=== PATIENT | male | born 1965 | race Caucasian/White ===

== ENCOUNTER 2025-01-30 12:56 | Outpatient (REF) | payer BC, SELFPAY ==
--- NOTE | 2025-01-30 | EMG_ITS ---
please see the attached neurophysiology report MTDD
--- OUTSIDE RECORDS SUMMARY | 2025-01-30 13:22 | XMS_ITS | Clinical Summary ---
Author Organization [address] [place] [address] Address [address] [place] [address] Phone Care Team Providers Care Assembler Camper Name Role Phone Marlene Kelly MD Primary Care Provider [phone] Allergies No known active allergies Medications cholecalciferol (VITAMIN D-3) 50 mcg (2,000 unit) tablet Take 1 tablet (2,000 Units total) by mouth 1 (one) time each day. 11/14/2023 Active turmeric, bulk, 100 % powder by Does not apply route. 11/12/2020 Active B cmplx 4/vit D3/C/folic/zinc (VITAL-D RX ORAL) Take by mouth. 11/12/2020 Active zinc gluconate 10 mg lozenge Take by mouth. 11/12/2020 Active meloxicam (MOBIC) 7.5 mg tablet Take 1 tablet (7.5 mg total) by mouth 1 (one) time each day. 90 each 1 11/13/2024 Active Active Problems Problem Noted Date Diagnosed Date Vitamin B12 deficiency 11/14/2023 Vitamin D deficiency 11/14/2023 Dyslipidemia 11/09/2022 Encounters Date Type Department Care Team Description 01/21/2025 3:45 PM EDT Office Visit Orthopedic Surgery [address] [address] Mounika Esteban PA Bilateral carpal tunnel syndrome (Primary Dx); Trigger middle finger of right hand 12/10/2024 9:00 AM EDT Consult Orthopedic [address] [address] Mounika Esteban PA Bilateral carpal tunnel syndrome (Primary Dx); Arthralgia of both hands; Trigger middle finger of right hand 11/13/2024 9:00 AM EDT Office Visit Internal Medicine - [place] [address] [facility] [address] [place] [phone] Marlene Kelly MD Adult general medical examination (Primary Dx); Vitamin B12 deficiency; Vitamin D deficiency; Dyslipidemia; Other fatigue; Chronic midline low back pain without sciatica; Screening for malignant neoplasm of prostate; Polyarthralgia; Arthralgia of both hands from Last 3 Months Surgical History Surgery Date Site/Laterality Comments INCISIONAL HERNIA REPAIR 1996 Bilateral PROCEDURE: IN IMPLANT MESH OPN HERNIA RPR/DEBRIDEMENT CLOSURE Family History Medical History Relation Name Comments Hypertension Father Ovarian cancer Maternal Grandmother No Known Problems Mother Other: ovarian cyst Sister 2 Relation Name Status Comments Brother Alive Father Alive Maternal Grandmother Mother Alive Sister 2 Alive Social History Tobacco Use Types Packs/Day Years Used Date Smoking Tobacco: Never Smokeless Tobacco: Never Tobacco Cessation:Counseling Given: Not Answered Alcohol Use Standard Drinks/Week Comments Yes 2 (1 standard drink = 0.6 oz pur e alcohol) Sex and Gender Information Value Date Recorded Sex Assigned at Not on file Legal Sex Male 4:22 PM EST Gender Identity Not on file Sexual Orientation Not on file Obstetrics History Last Filed Vital Signs Vital Sign Reading Time Taken Comments Blood Pressure 122/86 11/13/2024 9:14 AM EDT Pulse 69 11/13/2024 9:14 AM EDT Temperature 36.6 C (97.8 F) 11/13/2024 9:14 AM EDT Respiratory Rate - - Oxygen Saturation 100% 11/13/2024 9:14 AM EDT Inhaled Oxygen Concentration - - Weight 86.6 kg (191 lb) 01/21/2025 3:36 PM EDT Height 172.7 cm (5' 7.99 ) 01/21/2025 3:36 PM ED T Body Mass Index 29.05 01/21/2025 3:36 PM EDT Plan of Treatment Upcoming Encounters Date Type Department Care Team (Late st Contact Info) Description 03/24/2025 3:30 PM EDT Office Visit Orthopedic Surgery - [place] [address] [facility] [address] [place] [address] Mounika Esteban PA [address] [facility] [address] [place] [address] Health Maintenance Due Date Last Done Comments Hepatitis B Vaccines (1 of 3 - 19+ 3-dose series) 1986 Pneumococcal Vaccine: 50+ Years (1 of 1 - PCV) 2017 Colorectal Cancer Screening: Colonoscopy 06/25/2022 Depression Screening 06/25/2022 HIV Screening 06/25/2022 Hepatitis C Screening 06/25/2022 Social Influencers of Health Screening 06/25/2022 Influenza Vaccine (#1) 2025 , 04/16/2023, 05/10/2022, Additional history exists Cholesterol Screening (Lipid Panel) 12/10/2029 12/10/2024, 11/13/2023, 11/13/2023, Additional history exists DTaP,Tdap,and Td Vaccines (2 - Td or Tdap) 06/19/2030 06/19/2020 Zoster Vaccines Completed 10/21/2021, 05/24/2021 COVID-19 Vaccine Completed 06/30/2024, 07/2022, 05/10/2022, Additional history exists HIB Vaccines Aged Out No longer eligi ble based on patient's age to complete this topic HPV Vaccines Aged Out No longer eligi ble based on patient's age to complete this topic Hepatitis A Vaccines Aged Out No long er eligible based on patient's age to complete this topic IPV Vaccines Aged Out No longer eligi ble based on patient's age to complete this topic MMR Vaccines Aged Out No longer eligi ble based on patient's age to complete this topic Meningococcal ACWY Vaccine Aged Out N o longer eligible based on patient's age to complete this topic Meningococcal B Vaccine Aged Out No l onger eligible based on patient's age to complete this topic RSV Immunization Patients Under 20 months Aged Out No longer eligible based on patient's age to complete this topic Varicella Vaccines Aged Out No longer eligible based on patient's age to complete this topic Procedures Procedure Name Priority Date/Time Associated Diagnosis Comments XR HAND 3+ VIEWS BILAT Routine 5 9:22 AM EDT Arthralgia of both hands IN INJECTION SINGLE TENDON SHEATH OR LIGAMENT APONEUROSIS Routine 12/10/2024 9:00 AM EDT Trigger middle finger of right hand IN INJECTION CARPAL TUNNEL THERAPEUTIC Routine 12/10/2024 9:00 AM EDT Bilateral carpal tunnel syndrome ALLIE IFA WITH TITER AND PATTERN Routine 12/10/2024 8:02 AM EDT Polyarthralgia PROSTATE SPECIFIC ANTIGEN SCREEN Routine 12/10/2024 8:02 AM EDT Screening for malignant neoplasm of prostate VITAMIN D 25 HYDROXY Routine 12/10/2024 8:02 AM EDT Vitamin B12 deficiency Vitamin D deficiency Dyslipidemia Adult general medical examination Other fatigue VITAMIN B12 Routine 12/10/2024 8:02 AM EDT Vitamin B12 deficiency Vitamin D deficiency Dyslipidemia Adult general medical examination Other fatigue THYROID STIMULATING HORMONE Routine 12/10/2024 8:02 AM EDT Vitamin B12 deficiency Vitamin D deficiency Dyslipidemia Adult general medical examination Other fatigue COMPLETE BLOOD COUNT Routine 12/10/2024 8:02 AM EDT Vitamin B12 deficiency Vitamin D deficiency Dyslipidemia Adult general medical examination Other fatigue LIPID PANEL WITH REFLEX TO DIRECT LDL Routine 12/10/2024 8:02 AM EDT Vitamin B12 deficiency Vitamin D deficiency Dyslipidemia Adult general medical examination Other fatigue COMPREHENSIVE METABOLIC PANEL Routine 12/10/2024 8:02 AM EDT Vitamin B12 deficiency Vitamin D deficiency Dyslipidemia Adult general medical examination Other fatigue from Last 3 Months Results * XR Hand 3+ Views bilat (12/10/2024 9:22 AM EDT) Anatomical Region Laterality Modality Upper Extremities, Hand Bilateral Computed Radiography Narrative 12/10/2024 11:42 AM EDT Date of Visit: 12/10/2024 Reason for visit: Bilateral hand pain Views: AP, lateral, oblique bilateral hands Comparison: None Findings: Diffuse mild arthritic changes at PIP and DIP joints of all fingers. There are some scattered subchondral bone cyst at the PIP joints. Mild arthritic changes of metacarpophalangeal joints. Right thumb basal joint arthritis mild, left thumb he has moderate to severe basal joint arthritis and irregularity at the base of the thumb metacarpal. Impression: Mild diffuse arthritic changes to the fingers. 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 Mounika WILSON IMG XR PROCEDURES Final Resul t * IN INJECTION SINGLE TENDON SHEATH OR LIGAMENT APONEUROSIS (12/10/2024 9:00 AM EDT) Mounika Perez PA - 12/10/2024 9:00 AM EDT STEVE Johnson 12/10/2024 11:43 AM Hand / UE Inj/Asp: R long A1 for trigger finger Indications: pain Details: 25 G needle, volar approach Medications: 40 mg triamcinolone acetonide 40 mg/mL; 0.5 mL lidocaine 1 % Informed Consent: Laterality: Right Relevant images/test results available and reviewed: yes Health status cleared: Yes Procedure/treatment, purpose, treatment alternatives, risks/potential complications and benefits explained: yes Risk/complications/benefits details: Risks of infection, thinning of the skin and temporary skin discoloration discussed. Discussed risks of temporary increased pain after injection and swelling and mild redness at injection site for couple days. Explained occasionally cortisone injection can cause facial flushing temporarily. Benefits pain management. For postop injection pain ice, Tylenol and/or NSAIDs if patient can take Patient questions answered: yes Patient agrees, verbalizes understanding, and wants to proceed: yes Consent given by: Patient Informed consent discussion completed by Physician/MARIO with patient: Verbal Pre-procedure timeout performed: yes Mounika WILSON IN CLINIC/BEDSIDE ORDERABLES Final Result * IN INJECTION CARPAL TUNNEL THERAPEUTIC (12/10/2024 9:00 AM EDT) Mounika Perez PA - 12/10/2024 9:00 AM EDT STEVE Johnson 12/10/2024 11:43 AM Hand / UE Inj/Asp: L carpal tunnel for carpal tunnel syndrome Details: 25 G needle, volar approach Medications: 0.5 mL lidocaine 1 %; 40 mg triamcinolone acetonide 40 mg/mL Informed Consent: Laterality: Left Relevant images/test results available and reviewed: yes Health status cleared: Yes Procedure/treatment, purpose, treatment alternatives, risks/potential complications and benefits explained: yes Risk/complications/benefits details: Risks of infection, thinning of the skin and temporary skin discoloration discussed. Discussed risks of temporary increased pain after injection and swelling and mild redness at injection site for couple days. Explained occasionally cortisone injection can cause facial flushing temporarily. Benefits pain management. For postop injection pain ice, Tylenol and/or NSAIDs if patient can take Patient questions answered: yes Patient agrees, verbalizes understanding, and wants to proceed: yes Consent given by: Patient Informed consent discussion completed by Physician/MARIO with patient: Verbal Pre-procedure timeout performed: yes us Mounika WILSON IN CLINIC/BEDSIDE ORDERABLES Final Result * Prostate specific antigen screen (12/10/2024 8:02 AM EDT) PSA 0.68 0.00 - 4.00 ng/mL LAB CHEMISTRY METHOD 12/10/2024 10:54 AM EDT [facility] Blood Venous blood specimen / Unknown Venipuncture / Unknown 12/10/2024 8:02 AM EDT 12/10/2024 8:02 AM EDT Narrative [facility] - 12/10/2024 10:54 AM EDT The Siemens Advia Centaur Chemiluminescent Immunoassay is used. Results obtained with different assay methods or kits cannot be used interchangeably. Results cannot be interpreted as absolute evidence of the presence or absence of malignant disease. us Marlene Kelly MD LAB BLOOD ORDERABLES Final Res ult [facility] [address] [place] [address], [place] [phone] * (ABNORMAL) Lipid panel with reflex to direct LDL (12/10/2024 8:02 AM EDT) Cholesterol 244(H) 0 - 200 mg/dL LAB CHEMISTRY METHOD 12/10/2024 10:36 AM EDT [facility] Triglycerides 117 0 - 150 mg/dL LAB CHEMISTRY METHOD 12/10/2024 10:36 AM EDT [facility] HDL 63 >=40 mg/dL LAB CHEMISTRY METHOD 12/10/2024 10:[facility] LDL Calculated 158(H) 0 - 100 mg/dL LAB CHEMISTRY METHOD 12/10/2024 10:36 AM EDT [facility] VLDL Cholesterol Андрей 23.4 mg/dL LAB CHEMISTRY METHOD 12/10/2024 10:36 AM EDT [facility] Non HDL Chol. (LDL+VLDL) 181(H) <145 mg/dL LAB CHEMISTRY METHOD 12/10/2024 10:36 [facility] Chol/HDL Ratio 3.9 0.0 - 4.4 LAB CHEMISTRY METHOD 12/10/2024 10:36 AM EDT [facility] Blood Venous blood specimen / Unknown Venipuncture / Unknown 12/10/2024 8:02 AM EDT 12/10/2024 8:02 AM EDT us Marlene Kelly MD LAB BLOOD ORDERABLES Final Res ult [facility] [address] [place] [address], * ALLIE IFA with titer and pattern (12/10/2024 8:02 AM EDT) Pathologist [facility] ALLIE Negative Negative 12/11/2024 2:46 PM EDT [facility] Blood Venous blood specimen / Unknown Venipuncture / Unknown 12/10/2024 8:02 AM EDT 12/10/2024 8:02 AM EDT us Marlene Kelly MD LAB BLOOD ORDERABLES Final Res ult Performing Organization Address City/[facility]/ZIP Co de Phone Number [facility] [address] [place] [address], [place] [phone] * Vitamin D 25 hydroxy (12/10/2024 8:02 AM EDT) Vit D, 25-Hydroxy 32.0 30.0 - 80.0 ng/mL LAB CHEMISTRY METHOD 12/10/2024 10:51 AM EDT [facility] Blood Venous blood specimen / Unknown Venipuncture / Unknown 12/10/2024 8:02 AM EDT 12/10/2024 8:02 AM EDT us Marlene Kelly MD LAB BLOOD ORDERABLES Final Res ult Performing Organization Address [facility]/ZIP Co de Phone Number [facility] [address] [place] [address], [place] [phone] * Complete blood count (12/10/2024 8:02 AM EDT) WBC 5.4 4.8 - 10.8 K/mcL LAB HEMETOLOGY METHOD 12/10/2024 10:26 AM EDT [facility] RBC 5.00 4.50 - 5.50 M/mcL LAB HEMETOLOGY METHOD 12/10/2024 10:26 AM EDT [facility] Hemoglobin 14.9 13.5 - 17.5 g/dL LAB HEMETOLOGY METHOD 12/10/2024 10:26 AM EDT [facility] Hematocrit 44.7 42.0 - 54.0 % LAB HEMETOLOGY METHOD 12/10/2024 10:26 AM [facility] MCV 89.4 79.0 - 98.0 FL LAB HEMETOLOGY METHOD 12/10/2024 10:26 AM EDT [facility] MCH 29.8 27.0 - 32.0 pcg LAB HEMETOLOGY METHOD 12/10/2024 10:26 AM EDT [facility] MCHC 33.3 32.0 - 37.0 g/dL LAB HEMETOLOGY METHOD 12/10/2024 10:26 AM EDT [facility] RDW 12.9 11.0 - 15.0 % LAB HEMETOLOGY METHOD 12/10/2024 10:26 AM EDT [facility] Platelets 314 130 - 400 K/mcL LAB HEMETOLOGY METHOD 12/10/2024 10:26 AM EDT [facility] MPV 10.1 7.0 - 11.0 FL LAB HEMETOLOGY METHOD 12/10/2024 10:26 AM EDT [facility] NRBC 0.0 <1.0 % LAB HEMETOLOGY METHOD 12/10/2024 10:26 AM EDT [facility] NRBC Absolute 0.00 <0.10 K/mcL LAB HEMETOLOGY METHOD 12/10/2024 10:26 AM EDT [facility] Blood Venous blood specimen / Unknown Venipuncture / Unknown 12/10/2024 8:02 AM EDT 12/10/2024 8:02 AM EDT us Marlene Kelly MD LAB BLOOD ORDERABLES Final Res ult [facility] [address] [place] [address], * Thyroid stimulating hormone (12/10/2024 8:02 AM EDT) TSH 1.10 0.40 - 4.00 mcIU/mL LAB CHEMISTRY METHOD 12/10/2024 10:51 AM EDT [facility] Blood Venous blood specimen / Unknown Venipuncture / Unknown 12/10/2024 8:02 AM EDT 12/10/2024 8:02 AM EDT us Marlene Kelly MD LAB BLOOD ORDERABLES Final Res ult Performing Organization Address City/[facility]/ZIP Co de Phone Number [facility] [address] [place] [address], [place] [phone] * Vitamin B12 (12/10/2024 8:02 AM EDT) Pathologist [facility] Vitamin B-12 415 250 - 900 pcg/mL LAB CHEMISTRY METHOD 12/10/2024 10:36 AM EDT [facility] Blood Venous blood specimen / Unknown Venipuncture / Unknown 12/10/2024 8:02 AM EDT 12/10/2024 8:02 AM EDT us Marlene Kelly MD LAB BLOOD ORDERABLES Final Res ult Performing Organization Address City/[facility]/ZIP Co de Phone Number [facility] [address] [place] [address], [place] [phone] * Comprehensive metabolic panel (12/10/2024 8:02 AM EDT) [facility] Sodium 137 133 - 145 mmol/L LAB CHEMISTRY METHOD 12/10/2024 10:13 AM [facility] Potassium 4.5 3.5 - 5.5 mmol/L LAB CHEMISTRY METHOD 12/10/2024 10:13 [facility] Chloride 105 96 - 110 mmol/L LAB CHEMISTRY METHOD 12/10/2024 10:13 AM [facility] CO2 25 21 - 32 mmol/L LAB CHEMISTRY METHOD 12/10/2024 10:13 AM [facility] Anion Gap 7 3 - 11 LAB CHEMISTRY METHOD 12/10/2024 10:13 AM [facility] Glucose 100 70 - 100 mg/dL LAB CHEMISTRY METHOD 12/10/2024 10:13 AM [facility] BUN 16 5 - 25 mg/dL LAB CHEMISTRY METHOD 12/10/2024 10:13 AM [facility] Creatinine 0.82 0.70 - 1.30 mg/dL LAB CHEMISTRY METHOD 12/10/2024 10:13 AM [facility] eGFR 102 >=60 mL/min/1. 73m2 LAB CHEMISTRY METHOD 12/10/2024 10:13 AM [facility] Comment:Calculation based on the Chronic Kidney Disease Epidemiology Collaboration (CKD-EPI) equation refit without adjustment for race. BUN/Creatinine Ratio 19.5 LAB CHEMISTRY METHOD 12/10/2024 10:13 AM [facility] Calcium 9.3 8.5 - 10.5 mg/dL LAB CHEMISTRY METHOD 12/10/2024 10:13 AM [facility] AST (SGOT) 18 10 - 42 unit/L LAB CHEMISTRY METHOD 12/10/2024 10:13 AM [facility] ALT (SGPT) 27 10 - 60 unit/L LAB CHEMISTRY METHOD 12/10/2024 10:13 AM [facility] Alkaline Phosphatase 73 42 - 121 unit/L LAB CHEMISTRY METHOD 12/10/2024 10:13 AM [facility] Total Protein 7.3 6.0 - 8.0 g/dL LAB CHEMISTRY METHOD 12/10/2024 10:13 AM [facility] Albumin 3.8 3.2 - 5.0 g/dL LAB CHEMISTRY METHOD 12/10/2024 10:13 AM [facility] Total Bilirubin 0.8 0.0 - 1.4 mg/dL LAB CHEMISTRY METHOD 12/10/2024 10:13 AM [facility] Blood Venous blood specimen / Unknown Venipuncture / Unknown 12/10/2024 8:02 AM EDT 12/10/2024 8:02 AM EDT us Marlene Kelly MD LAB BLOOD ORDERABLES Final Res ult [facility] [address] [place] [address], from Last 3 Mon[place] [address] [facility] Care Teams Assembler Camper Relationship Specialty Start Date End Date Marlene Kelly MD [address] [facility] [address] [place] [phone] PCP - General Internal Medicine 05/30/18
== END 2025-01-30 12:57 | disposition home or self-care (01) ==
LOC: HO.NEURO 12:56
PROVIDERS: PCP Internal Medicine; Referring Provider Physician Assistant; Visit Provider Psychiatry & Neurology Neurology
DX: G56.03 Carpal tunnel syndrome, bilateral upper limbs (principal)
CPT/HCPCS: 95886; 95913

== ENCOUNTER → 2025-01-30 13:04 | Outpatient (BNV) | payer BC, SELFPAY | PROVIDERS: PCP Internal Medicine; Referring Provider Physician Assistant; Visit Provider Psychiatry & Neurology Neurology | DX: G56.03 Carpal tunnel syndrome, bilateral upper limbs (principal) | CPT/HCPCS: 95886; 95913 ==